=== PATIENT | male | born 1935 | race Caucasian/White ===

== ENCOUNTER 2021-07-05 15:17 | Inpatient (IN) | payer OTHER ==
[2021-07-05 17:29] LABS: BASO % 0.6 % (0-2.0); EOS % 0.4 % (0-4.5); HEMATOCRIT 41.4 % (35.4-49); HEMOGLOBIN 14.3 GM/dL (11.7-16.9); LYMPH % 16.3 % (8-40); MCH 31.7 pg (25.7-33.7); MCHC 34.5 g/dl (32.0-35.9); MEAN CELL VOLUME 91.9 fl (80-96); MEAN PLT VOLUME 10.7 fl (7.5-11.1); MONO % 13.3 % (3.8-10.2); NEUT % 69.4 % (42.8-82.8); PLATELET COUNT 201 10^3/uL (134-434); RDW 12.4 % (11.9-15.9); WHITE BLOOD COUNT 8.1 K/mm3 (4.0-10.0)
[2021-07-05 17:51] LABS: CHLORIDE 96 mmol/L (98-107); SODIUM 135 mmol/L (136-145)
[2021-07-05 17:54] LABS: ALBUMIN 3.3 g/dl (3.4-5.0); CALCIUM 8.9 mg/dL (8.5-10.1)
[2021-07-05 17:55] LABS: ANION GAP 8 MMOL/L (8-16); BLOOD UREA NITROGEN 20.5 mg/dL (7-18); CO2 30 mmol/L (21-32); GLUCOSE,RANDOM 98 mg/dL (74-106)
[2021-07-05 17:58] LABS: CREATININE 0.9 mg/dL (0.55-1.3); SGOT/AST 19 U/L (15-37); SGPT/ALT 20 U/L (13-61)
[2021-07-05 17:59] LABS: BILIRUBIN,TOTAL 1.4 mg/dL (0.2-1); TOT PROT 6.6 g/dl (6.4-8.2)
[2021-07-05 18:00] LABS: ALK PHOS 78 U/L (45-117)
[2021-07-05] MEDS ORDERED: FUROSEMIDE 20 MG TABLET (FP) PO ONE (22:34)
[2021-07-06] MEDS: SODIUM CHLORIDE 1,000 ML IV SCH ×2 (00:12→06:03)
[2021-07-06] MEDS: ROSUVASTATIN CA 20 MG TABLET (FP) PO SCH ×2 (00:12→10:04)
[2021-07-06] MEDS: GABAPENTIN 400 MG CAPSULE PO SCH ×4 (00:12→21:02)
[2021-07-06 04:18] LABS: INR 1.3 (0.83-1.09); PROTHROMBIN TIME (PATIENT) 15.3 SEC (9.7-13.0)
[2021-07-06 04:59] LABS: EOS % 1.6 % (0-4.5); HEMATOCRIT 39.9 % (35.4-49); HEMOGLOBIN 13.7 GM/dL (11.7-16.9); LYMPH % 17.8 % (8-40); MCHC 34.5 g/dl (32.0-35.9); MEAN CELL VOLUME 92.8 fl (80-96); MEAN PLT VOLUME 10.8 fl (7.5-11.1); MONO % 11.9 % (3.8-10.2); NEUT % 67.7 % (42.8-82.8); PLATELET COUNT 171 10^3/uL (134-434); RDW 12.6 % (11.9-15.9); WHITE BLOOD COUNT 8.2 K/mm3 (4.0-10.0)
[2021-07-06 05:29] LABS: BLOOD UREA NITROGEN 14.6 mg/dL (7-18); CALCIUM 8.4 mg/dL (8.5-10.1); CREATININE 0.6 mg/dL (0.55-1.3)
[2021-07-06 05:30] LABS: TOT PROT 5.9 g/dl (6.4-8.2)
[2021-07-06 05:32] LABS: BILIRUBIN,TOTAL 1.1 mg/dL (0.2-1)
[2021-07-06] MEDS: APIXABAN 5 MG TABLET PO SCH ×2 (10:04→21:03)
[2021-07-06] MEDS: ISOSORBIDE MONONITRATE 30 MG TAB.SR.24H (FP) PO SCH (10:04)
[2021-07-06] MEDS: FUROSEMIDE 20 MG TABLET (FP) PO SCH ×2 (10:04→10:31)
[2021-07-06] MEDS ORDERED: DEXTROSE 5%-WATER - 50 ML IVPB ONE ×2 (13:48→15:55)
[2021-07-06] MEDS ORDERED: PIPERACILLIN/TAZOBACTAM 3.375 GM VIAL IVPB ONE ×2 (13:48→15:54)
[2021-07-06] MEDS: PIPERACILLIN/TAZOB 3.375 GM 3.375 GM in DEXTROSE 5%-WATER - 50 ML IVPB SCH ×2 (13:54→17:27)
[2021-07-06] MEDS: PANTOPRAZOLE 40 MG TABLET PO SCH (13:55)
[2021-07-06 14:48] LABS: PH,URINE 5.5 (5.0-8.0); URINE APPEARANCE CLEAR; URINE BILIRUBIN NEGATIVE (NEGATIVE); URINE COLOR YELLOW; URINE GLUCOSE (UA) NEGATIVE (NEGATIVE); URINE KETONE 1+ (NEGATIVE); URINE LEUK ESTERASE NEGATIVE (NEGATIVE); URINE NITRITE NEGATIVE (NEGATIVE); URINE PROTEIN NEGATIVE (NEGATIVE)
[2021-07-06] MEDS: MIRTAZAPINE 15 MG TABLET (FP) PO SCH (21:02)
[2021-07-07] MEDS ORDERED: PIPERACILLIN/TAZOBACTAM 3.375 GM VIAL IVPB ONE ×3 (00:55→16:00)
[2021-07-07] MEDS ORDERED: DEXTROSE 5%-WATER - 50 ML IVPB ONE ×3 (00:56→16:01)
[2021-07-07] MEDS: SODIUM CHLORIDE 1,000 ML IV SCH ×3 (01:22→16:34)
[2021-07-07] MEDS: PIPERACILLIN/TAZOB 3.375 GM 3.375 GM in DEXTROSE 5%-WATER - 50 ML IVPB SCH ×3 (01:22→17:00)
[2021-07-07] MEDS: GABAPENTIN 400 MG CAPSULE PO SCH ×3 (06:33→21:45)
[2021-07-07 07:40] LABS: HEMATOCRIT 38.9 % (35.4-49); HEMOGLOBIN 13.6 GM/dL (11.7-16.9); MCH 32.2 pg (25.7-33.7); PLATELET COUNT 162 10^3/uL (134-434); RBC 4.23 M/mm3 (4.00-5.60); RDW 12.6 % (11.9-15.9); WHITE BLOOD COUNT 6.6 K/mm3 (4.0-10.0)
[2021-07-07] MEDS ORDERED: PT OWN MED DRAWER 7, Y5N ONE (08:09)
[2021-07-07 08:19] LABS: BLOOD UREA NITROGEN 15.6 mg/dL (7-18); CREATININE 0.8 mg/dL (0.55-1.3)
[2021-07-07] MEDS: ROSUVASTATIN CA 20 MG TABLET (FP) PO SCH (09:11)
[2021-07-07] MEDS: ISOSORBIDE MONONITRATE 30 MG TAB.SR.24H (FP) PO SCH (09:11)
[2021-07-07] MEDS: FUROSEMIDE 20 MG TABLET (FP) PO SCH (09:11)
[2021-07-07] MEDS: APIXABAN 5 MG TABLET PO SCH ×2 (09:11→21:45)
[2021-07-07] MEDS: PANTOPRAZOLE 40 MG TABLET PO SCH (09:12)
[2021-07-07] MEDS: metroNIDAZOLE 250 MG TABLET PO SCH ×2 (16:54→21:45)
[2021-07-07] MEDS: MIRTAZAPINE 15 MG TABLET (FP) PO SCH (21:45)
[2021-07-08] MEDS ORDERED: DEXTROSE 5%-WATER - 50 ML IVPB ONE ×3 (01:43→17:14)
[2021-07-08] MEDS ORDERED: PIPERACILLIN/TAZOBACTAM 3.375 GM VIAL IVPB ONE ×3 (01:43→17:13)
[2021-07-08] MEDS: PIPERACILLIN/TAZOB 3.375 GM 3.375 GM in DEXTROSE 5%-WATER - 50 ML IVPB SCH ×3 (02:04→17:14)
[2021-07-08] MEDS ORDERED: PT OWN MED DRAWER 7, Y5N ONE ×2 (05:31→14:11)
[2021-07-08] MEDS: metroNIDAZOLE 250 MG TABLET PO SCH ×3 (05:40→22:24)
[2021-07-08] MEDS: GABAPENTIN 400 MG CAPSULE PO SCH ×3 (05:40→22:26)
[2021-07-08 09:40] VITALS: BMI 23.8
[2021-07-08] MEDS: ISOSORBIDE MONONITRATE 30 MG TAB.SR.24H (FP) PO SCH (09:43)
[2021-07-08] MEDS: PANTOPRAZOLE 40 MG TABLET PO SCH (09:43)
[2021-07-08] MEDS: ROSUVASTATIN CA 20 MG TABLET (FP) PO SCH (09:43)
[2021-07-08] MEDS: APIXABAN 5 MG TABLET PO SCH ×2 (09:44→22:23)
[2021-07-08] MEDS: MULTIVITAMINS (DAILY MVI) TABLET (FP) PO SCH (11:58)
[2021-07-08] MEDS: SODIUM CHLORIDE 1,000 ML IV SCH (14:15)
[2021-07-08] MEDS: LIPASE/PROTEASE/AMYLASE 36,000 UNIT CAPSULE PO SCH ×2 (15:52→17:12)
[2021-07-08] MEDS: MIRTAZAPINE 15 MG TABLET (FP) PO SCH (22:28)
[2021-07-09] MEDS ORDERED: PIPERACILLIN/TAZOBACTAM 3.375 GM VIAL IVPB ONE ×4 (02:31→17:18)
[2021-07-09] MEDS ORDERED: DEXTROSE 5%-WATER - 50 ML IVPB ONE ×4 (02:31→17:18)
[2021-07-09] MEDS: PIPERACILLIN/TAZOB 3.375 GM 3.375 GM in DEXTROSE 5%-WATER - 50 ML IVPB SCH ×3 (02:47→17:32)
[2021-07-09] MEDS: GABAPENTIN 400 MG CAPSULE PO SCH ×3 (07:22→22:10)
[2021-07-09] MEDS: metroNIDAZOLE 250 MG TABLET PO SCH ×3 (07:22→22:06)
[2021-07-09 07:47] LABS: BASO % 1.1 % (0-2.0); EOS % 2.6 % (0-4.5); HEMATOCRIT 42.1 % (35.4-49); HEMOGLOBIN 14.4 GM/dL (11.7-16.9); LYMPH % 22.6 % (8-40); MCH 31.7 pg (25.7-33.7); MCHC 34.1 g/dl (32.0-35.9); MEAN CELL VOLUME 93.1 fl (80-96); MONO % 8.3 % (3.8-10.2); NEUT % 65.4 % (42.8-82.8); PLATELET COUNT 186 10^3/uL (134-434); RBC 4.52 M/mm3 (4.00-5.60); RDW 12.7 % (11.9-15.9); WHITE BLOOD COUNT 7.8 K/mm3 (4.0-10.0)
[2021-07-09 08:12] LABS: BLOOD UREA NITROGEN 13.9 mg/dL (7-18); CREATININE 0.9 mg/dL (0.55-1.3)
[2021-07-09 08:13] LABS: CALCIUM 8.1 mg/dL (8.5-10.1)
[2021-07-09] MEDS: LIPASE/PROTEASE/AMYLASE 36,000 UNIT CAPSULE PO SCH ×3 (08:13→17:32)
[2021-07-09] MEDS: ISOSORBIDE MONONITRATE 30 MG TAB.SR.24H (FP) PO SCH (09:33)
[2021-07-09] MEDS: PANTOPRAZOLE 40 MG TABLET PO SCH (09:33)
[2021-07-09] MEDS: MULTIVITAMINS (DAILY MVI) TABLET (FP) PO SCH (09:33)
[2021-07-09] MEDS: APIXABAN 5 MG TABLET PO SCH ×2 (09:33→22:11)
[2021-07-09] MEDS: ROSUVASTATIN CA 20 MG TABLET (FP) PO SCH (09:35)
[2021-07-09] MEDS: SODIUM CHLORIDE 1,000 ML IV SCH (13:45)
[2021-07-09] MEDS ORDERED: PT OWN MED DRAWER 7, Y5N ONE ×2 (17:21→19:53)
[2021-07-09] MEDS: MIRTAZAPINE 15 MG TABLET (FP) PO SCH (22:06)
[2021-07-10] MEDS ORDERED: PIPERACILLIN/TAZOBACTAM 3.375 GM VIAL IVPB ONE ×3 (00:59→17:06)
[2021-07-10] MEDS ORDERED: DEXTROSE 5%-WATER - 50 ML IVPB ONE ×3 (01:00→17:06)
[2021-07-10] MEDS: PIPERACILLIN/TAZOB 3.375 GM 3.375 GM in DEXTROSE 5%-WATER - 50 ML IVPB SCH ×4 (01:49→17:07)
[2021-07-10] MEDS: GABAPENTIN 400 MG CAPSULE PO SCH ×3 (06:42→22:12)
[2021-07-10] MEDS: metroNIDAZOLE 250 MG TABLET PO SCH ×2 (06:43→14:58)
[2021-07-10 07:36] LABS: BASO % 1.1 % (0-2.0); HEMATOCRIT 39.2 % (35.4-49); HEMOGLOBIN 13.2 GM/dL (11.7-16.9); LYMPH % 13.9 % (8-40); MCH 31.7 pg (25.7-33.7); MCHC 33.6 g/dl (32.0-35.9); MEAN CELL VOLUME 94.4 fl (80-96); MEAN PLT VOLUME 10.9 fl (7.5-11.1); MONO % 9.8 % (3.8-10.2); NEUT % 73.2 % (42.8-82.8); PLATELET COUNT 163 10^3/uL (134-434); RBC 4.16 M/mm3 (4.00-5.60); RDW 13.1 % (11.9-15.9)
[2021-07-10 08:01] LABS: CALCIUM 7.9 mg/dL (8.5-10.1)
[2021-07-10 08:02] LABS: BLOOD UREA NITROGEN 12.4 mg/dL (7-18)
[2021-07-10 08:05] LABS: CREATININE 0.9 mg/dL (0.55-1.3)
[2021-07-10] MEDS: LIPASE/PROTEASE/AMYLASE 36,000 UNIT CAPSULE PO SCH ×3 (08:45→17:09)
[2021-07-10] MEDS: ISOSORBIDE MONONITRATE 30 MG TAB.SR.24H (FP) PO SCH (10:01)
[2021-07-10] MEDS: APIXABAN 5 MG TABLET PO SCH ×2 (10:01→22:12)
[2021-07-10] MEDS: MULTIVITAMINS (DAILY MVI) TABLET (FP) PO SCH (10:01)
[2021-07-10] MEDS: PANTOPRAZOLE 40 MG TABLET PO SCH (10:01)
[2021-07-10] MEDS: ROSUVASTATIN CA 20 MG TABLET (FP) PO SCH (10:01)
[2021-07-10] MEDS: SODIUM CHLORIDE 1,000 ML IV SCH (17:09)
[2021-07-10] MEDS ORDERED: PT OWN MED DRAWER 7, Y5N ONE (20:51)
[2021-07-10] MEDS: MIRTAZAPINE 15 MG TABLET (FP) PO SCH (22:12)
[2021-07-11] MEDS ORDERED: DEXTROSE 5%-WATER - 50 ML IVPB ONE ×2 (03:56→09:06)
[2021-07-11] MEDS ORDERED: PIPERACILLIN/TAZOBACTAM 3.375 GM VIAL IVPB ONE ×2 (03:56→09:06)
[2021-07-11] MEDS: metroNIDAZOLE 250 MG TABLET PO SCH ×3 (06:15→14:23)
[2021-07-11] MEDS: GABAPENTIN 400 MG CAPSULE PO SCH ×2 (06:19→13:30)
[2021-07-11] MEDS ORDERED: PT OWN MED DRAWER 7, Y5N ONE (08:29)
[2021-07-11] MEDS: LIPASE/PROTEASE/AMYLASE 36,000 UNIT CAPSULE PO SCH ×2 (08:34→12:21)
[2021-07-11] MEDS: PANTOPRAZOLE 40 MG TABLET PO SCH (09:33)
[2021-07-11] MEDS: MULTIVITAMINS (DAILY MVI) TABLET (FP) PO SCH (09:34)
[2021-07-11] MEDS: ISOSORBIDE MONONITRATE 30 MG TAB.SR.24H (FP) PO SCH (09:34)
[2021-07-11] MEDS: APIXABAN 5 MG TABLET PO SCH (09:34)
[2021-07-11] MEDS: PIPERACILLIN/TAZOB 3.375 GM 3.375 GM in DEXTROSE 5%-WATER - 50 ML IVPB SCH (09:34)
[2021-07-11] MEDS: ROSUVASTATIN CA 20 MG TABLET (FP) PO SCH (09:34)
[2021-07-11 14:59] VITALS: BP 91/52; PULSE 61; TEMP 98.9
== END 2021-07-11 16:58 | disposition home or self-care (01) | DRG 392 ==
LOC: JER 15:17 → JERBED 17:18 → J4W 07-06 03:27
PROVIDERS: ADMIT Family Medicine; ATTEND Family Medicine
DX: K52.9 Noninfective gastroenteritis and colitis, unspecified (principal); K29.80 Duodenitis without bleeding; I48.0 Paroxysmal atrial fibrillation; I25.10 Atherosclerotic heart disease of native coronary artery without angina pectoris; I10 Essential (primary) hypertension; K29.70 Gastritis, unspecified, without bleeding; I25.2 Old myocardial infarction; R10.13 Epigastric pain; K80.20 Calculus of gallbladder without cholecystitis without obstruction; E86.0 Dehydration; M54.50 Low back pain, unspecified; Z85.038 Personal history of other malignant neoplasm of large intestine; Z95.5 Presence of coronary angioplasty implant and graft
CPT/HCPCS: 36415; 71045-TC-FY; 74177-TC; 80048; 80053; 81003; 82272; 82550; 83605; 83690; 84436; 84443; 84484; 85025; 85027; 85610; 87086; 93005; 93010; 93306-TC; 99285-25; C9803; Q9967; U0003; U0005

== ENCOUNTER 2024-05-23 14:12 | Inpatient (IN) | payer OTHER ==
[2024-05-23 15:36] LABS: BASO % 0.3 % (0-2.0); EOS % 0.2 % (0-4.5); HEMATOCRIT 40.6 % (35.4-49); HEMOGLOBIN 13.8 GM/dL (11.7-16.9); LYMPH % 5.3 % (8-40); MCH 31.7 pg (25.7-33.7); MEAN CELL VOLUME 93.2 fl (80-96); MEAN PLT VOLUME 9.9 fl (7.5-11.1); MONO % 10.8 % (3.8-10.2); NEUT % 83.4 % (42.8-82.8); PLATELET COUNT 258 10^3/uL (134-434); RBC 4.35 M/mm3 (4.00-5.60); RDW 12.2 % (11.9-15.9); WHITE BLOOD COUNT 11.9 K/mm3 (4.0-10.0)
[2024-05-23 15:50] LABS: POTASSIUM 3.7 mmol/L (3.5-5.1)
[2024-05-23 15:52] LABS: ALBUMIN 3.1 g/dl (3.4-5.0); BLOOD UREA NITROGEN 17.7 mg/dL (7-18); CALCIUM 8.9 mg/dL (8.5-10.1); MAGNESIUM 1.9 mg/dL (1.8-2.4)
[2024-05-23 15:56] LABS: CREATININE 0.8 mg/dL (0.55-1.3)
[2024-05-23 15:57] LABS: BILIRUBIN,TOTAL 1.5 mg/dL (0.2-1); TOT PROT 6.8 g/dl (6.4-8.2)
[2024-05-23 16:00] LABS: N-TERMINAL BNP 1772.3 pg/ml (5-450)
[2024-05-23] MEDS: SODIUM CHLORIDE 0.9% 500 ML INFUS.BAG IV ONE (17:42)
[2024-05-23] MEDS ORDERED: FUROSEMIDE 40 MG/4 ML INJECTABLE VIAL ONE (18:05)
[2024-05-23] MEDS: FUROSEMIDE 40 MG/4 ML INJECTABLE VIAL IVPUSH ONE (18:46)
[2024-05-23 18:48] LABS: EPI CELLS 9 /uL (0-25.1); HYALINE CASTS 4 /uL (0-3.1); URINE APPEARANCE CLEAR; URINE BACTERIA 1.7 /uL (0-1359); URINE BILIRUBIN 1+ (NEGATIVE); URINE COLOR DK YELLOW; URINE GLUCOSE (UA) NEGATIVE (NEGATIVE); URINE KETONE 2+ (NEGATIVE); URINE LEUK ESTERASE NEGATIVE (NEGATIVE); URINE NITRITE NEGATIVE (NEGATIVE); URINE PROTEIN 1+ (NEGATIVE); URINE RBC 61.4 /uL (0-23.9); URINE UROBILINOGEN 4.0 E.U/dl mg/dL (0.2-1.0); URINE WBC 24 /uL (0-25.8)
[2024-05-23] MEDS: CEFTRIAXONE 1 GM in DEXTROSE 5%-WATER - 50 ML IVPB SCH (19:00)
[2024-05-23] MEDS: AZITHROMYCIN IVPB 250 MG in DEXTROSE 5%-WATER - 250 ML IVPB SCH ×2 (20:00→20:30)
[2024-05-23 20:08] VITALS: BMI 22.4
[2024-05-23] MEDS: GABAPENTIN 400 MG CAPSULE PO SCH (21:03)
[2024-05-23] MEDS: ATORVASTATIN CA 20 MG TABLET (FP) PO SCH (21:03)
[2024-05-23] MEDS: BUDESONIDE/FORMETEROL FUMARATE 160/4.5 mcg INHALER IH SCH (21:04)
[2024-05-23] MEDS: APIXABAN 2.5 MG TABLET PO SCH (21:04)
[2024-05-24] MEDS: FUROSEMIDE 40 MG/4 ML INJECTABLE VIAL IVPUSH SCH (06:24)
[2024-05-24] MEDS: ISOSORBIDE MONONITRATE 30 MG TAB.SR.24H (FP) PO SCH (09:14)
[2024-05-24] MEDS: PANTOPRAZOLE 40 MG TABLET PO SCH (09:14)
[2024-05-24] MEDS ORDERED: AZITHROMYCIN IVPB 250 MG in DEXTROSE 5%-WATER - 250 ML IVPB SCH (10:00)
[2024-05-24] MEDS ORDERED: ASPIRIN COATED 81 MG TABLET.EC PO SCH (10:00)
[2024-05-24 10:45] LABS: BASO % 0.7 % (0-2.0); EOS % 1.5 % (0-4.5); HEMATOCRIT 40.9 % (35.4-49); HEMOGLOBIN 13.7 GM/dL (11.7-16.9); LYMPH % 9.3 % (8-40); MCH 31.6 pg (25.7-33.7); MCHC 33.4 g/dl (32.0-35.9); MEAN CELL VOLUME 94.6 fl (80-96); MEAN PLT VOLUME 10.1 fl (7.5-11.1); NEUT % 75.5 % (42.8-82.8); PLATELET COUNT 270 10^3/uL (134-434); RBC 4.32 M/mm3 (4.00-5.60); RDW 12.6 % (11.9-15.9); WHITE BLOOD COUNT 7.7 K/mm3 (4.0-10.0)
[2024-05-24 10:53] LABS: POTASSIUM 4.6 mmol/L (3.5-5.1)
[2024-05-24 10:57] LABS: ALBUMIN 2.8 g/dl (3.4-5.0); BLOOD UREA NITROGEN 19.8 mg/dL (7-18)
[2024-05-24 11:00] LABS: CREATININE 0.8 mg/dL (0.55-1.3)
[2024-05-24 11:02] LABS: BILIRUBIN,TOTAL 0.8 mg/dL (0.2-1); TOT PROT 6.2 g/dl (6.4-8.2)
[2024-05-25] MEDS ORDERED: ALBUTEROL SO4 2.5/IPRATROPIUM 0.5 INH SOL 3 ML VIAL.NEB. NEB PRN (09:35)
[2024-05-25] MEDS: predniSONE 20 MG TABLET (UD) PO SCH (10:20)
[2024-05-25] MEDS: CEFTRIAXONE 1 GM in DEXTROSE 5%-WATER - 50 ML IVPB SCH (10:21)
[2024-05-25 11:05] LABS: CALCIUM 8.6 mg/dL (8.5-10.1)
[2024-05-25 11:06] LABS: BLOOD UREA NITROGEN 26.3 mg/dL (7-18)
[2024-05-25 11:09] LABS: CREATININE 0.9 mg/dL (0.55-1.3)
[2024-05-25] MEDS: POLYETHYLENE GLYCOL (HEALTHYLAX) 3350 17 GM PACKET PO SCH (17:35)
[2024-05-26 09:53] LABS: BASO % 0.5 % (0-2.0); EOS % 1.8 % (0-4.5); HEMATOCRIT 38.7 % (35.4-49); HEMOGLOBIN 13.1 GM/dL (11.7-16.9); LYMPH % 14.6 % (8-40); MCH 31.4 pg (25.7-33.7); MCHC 33.8 g/dl (32.0-35.9); MEAN CELL VOLUME 92.9 fl (80-96); MEAN PLT VOLUME 9.9 fl (7.5-11.1); MONO % 9.1 % (3.8-10.2); PLATELET COUNT 317 10^3/uL (134-434); RBC 4.16 M/mm3 (4.00-5.60); RDW 12.5 % (11.9-15.9); WHITE BLOOD COUNT 9.7 K/mm3 (4.0-10.0)
[2024-05-26 10:18] LABS: POTASSIUM 3.7 mmol/L (3.5-5.1)
[2024-05-26 10:20] LABS: CALCIUM 8.4 mg/dL (8.5-10.1)
[2024-05-26 10:24] LABS: CREATININE 0.8 mg/dL (0.55-1.3)
[2024-05-26] MEDS: methylPREDNISolone NA SUCC 40 MG/1 ML VIAL IVPUSH ONE (12:56)
[2024-05-27] MEDS: FUROSEMIDE 40 MG TABLET (FP) PO SCH (09:59)
[2024-05-27 11:14] LABS: BASO % 0.3 % (0-2.0); EOS % 0.6 % (0-4.5); HEMATOCRIT 38.8 % (35.4-49); HEMOGLOBIN 13.1 GM/dL (11.7-16.9); MCH 31.5 pg (25.7-33.7); MCHC 33.7 g/dl (32.0-35.9); MEAN CELL VOLUME 93.3 fl (80-96); MEAN PLT VOLUME 9.7 fl (7.5-11.1); MONO % 5.7 % (3.8-10.2); NEUT % 83.4 % (42.8-82.8); PLATELET COUNT 333 10^3/uL (134-434); RBC 4.16 M/mm3 (4.00-5.60); RDW 12.4 % (11.9-15.9); WHITE BLOOD COUNT 15.2 K/mm3 (4.0-10.0)
[2024-05-27 11:41] LABS: POTASSIUM 4.1 mmol/L (3.5-5.1)
[2024-05-27 11:43] LABS: CALCIUM 8.7 mg/dL (8.5-10.1)
[2024-05-27 11:44] LABS: BLOOD UREA NITROGEN 25.4 mg/dL (7-18)
[2024-05-28 09:04] VITALS: RESP 20; TEMP 98
[2024-05-28] MEDS ORDERED: BENZOCAINE/MENTH/CETYLPYRD CL 1 EACH LOZENGE MM PRN (11:40)
[2024-05-28 13:11] VITALS: BP 109/63; PULSE 70
== END 2024-05-28 14:43 | DRG 195 ==
LOC: JER 14:12 → JERBED 16:58 → J8W 19:10
PROVIDERS: ADMIT Family Medicine; ATTEND Family Medicine
DX: J18.9 Pneumonia, unspecified organism (principal); I10 Essential (primary) hypertension; M54.50 Low back pain, unspecified; I25.2 Old myocardial infarction; R79.89 Other specified abnormal findings of blood chemistry; I48.0 Paroxysmal atrial fibrillation; Z85.038 Personal history of other malignant neoplasm of large intestine
CPT/HCPCS: 0241U-QW; 36415; 70450-TC; 71045-TC-FY; 71250-TC; 80048; 80053; 81003; 83735; 83880; 84443; 84484; 85025; 87086; 87635; 87899; 93005; 93010; 94761; 97116-GP; 97161-GP; 99285-25